=== PATIENT | male | born 1975 | race Caucasian/White ===

== ENCOUNTER 2018-05-20 11:48 | Emergency (ER) | payer OTHER, SELFPAY ==
[2018-05-20 11:48] VITALS: BP 172/111; PULSE 59; RESP 20; TEMP 36.4; O2SAT 99; BMI 25.0
--- NOTE | 2018-05-20 13:03 | ED.WOUNDLAC ---
HPI - Wound/Laceration <Shanice Aopnte PA-C - Last Filed: 05/20/18 17:54> General Chief Complaint: Extremity Injury, Upper Stated Complaint: Cut on Rt thumb Time Seen by Provider: 05/20/18 13:02 Source: patient Mode of arrival: ambulatory Limitations: no limitations History of Present Illness HPI narrative: This 43-year-old male was doing dishes and cut himself on a straight kitchen knife shortly prior to arrival. He states it was bleeding fairly profusely initially. He bandaged it and that has stopped. He denies any numbness or weakness in the thumb, no difficulty with moving. He denies any other injury. He just had a tetanus vaccine in the last 2 or 3 weeks. Related Data Allergies Allergy/AdvReac Type Severity Reaction Status Date / Time No Known Drug Allergies Allergy Verified 05/20/18 12:10 Review of Systems <Shanice Aponte PA-C - Last Filed: 05/20/18 17:54> Review of Systems All systems reviewed & are unremarkable except as noted in HPI and below Exam <Shanice Aponte PA-C - Last Filed: 05/20/18 17:54> Narrative Exam Narrative: GENERAL APPEARANCE: Patient sitting comfortably, in no distress. LUNGS: Clear to auscultation bilaterally. HEART: Rate and rhythm regular without murmur, normal S1 and S2, no S3 or S4. DERMATOLOGIC: Right thumb between the the MCP and IP on the dorsal surface there is a 5 mm slightly curved lack with less than 2 mm gap with tension on the skin, no gap in neutral position. Not actively bleeding. Depth is less than 1mm MUSCULOSKELETAL: Full range of motion of the right thumb with strength intact NEUROVASCULAR: Right thumb is warm and pink with brisk cap refill, sensation grossly intact Initial Vital Signs Initial Vital Signs: Vital Signs Temperature 97.5 F L 05/20/18 11:48 Pulse Rate 59 L 05/20/18 11:48 Respiratory Rate 20 05/20/18 11:48 Blood Pressure 172/111 H 05/20/18 11:48 Pulse Oximetry 99 05/20/18 11:48 <Araceli Hightower MD - Last Filed: 05/21/18 08:02> Initial Vital Signs Initial Vital Signs: Vital Signs Temperature 97.5 F L 05/20/18 11:48 Pulse Rate 59 L 05/20/18 11:48 Respiratory Rate 20 05/20/18 11:48 Blood Pressure 172/111 H 05/20/18 11:48 Pulse Oximetry 99 05/20/18 11:48 Procedures <Shanice Aponte PA-C - Last Filed: 05/20/18 17:54> Laceration Repair Laceration 1: Site: hand Side (If applicable): right Size (cm): 5 Description: linear Depth: simple, single layer Pre-repair: irrigated extensively Skin layer closed with: other (dermabond. No FB visible) Course <Shanice Aponte PA-C - Last Filed: 05/20/18 17:54> Vital Signs - 8 hr 05/20/18 11:48 Temperature 97.5 F L Pulse Rate 59 L Respiratory Rate 20 Blood Pressure 172/111 H Pulse Oximetry 99 <Araceli Hightower MD - Last Filed: 05/21/18 08:02> Vital Signs - 8 hr 05/20/18 11:48 Temperature 97.5 F L Pulse Rate 59 L Respiratory Rate 20 Blood Pressure 172/111 H Pulse Oximetry 99 Discharge Plan Departure Patient Disposition: Home Clinical Impression: Laceration of thumb Discharge Date/Time: 05/20/18 13:32 Interventions: ED Discharge Assessment Last Done: 05/20/18 13:32 Instructions: DI for Laceration Repair With Dermabond Activity Restrictions/Additional Instructions: Please keep your thumb in the splint/straight for protection and to help it heal for at least a few days. Keep the wound clean and dry (the Steri-Strips will fall off by themselves), and watch for any sign of infection such as redness, swelling, draining pus, increased pain or fever. Return right away or see your PCP if any. [facility] [Outside]
== END 2018-05-20 13:32 | disposition home or self-care (01) ==
PROVIDERS: Emergency Provider Internal Medicine
DX: S61.011A Laceration without foreign body of right thumb without damage to nail, initial encounter (principal); W26.0XXA Contact with knife, initial encounter
CPT/HCPCS: 29130; 99282; 99283

== ENCOUNTER → 2018-10-03 08:08 | Outpatient (CLI) | payer OTHER, SELFPAY ==
[2018-10-03 08:38] LABS: Add Manual Diff / Slide Review NO; Basophils Absolute Auto 0 /uL (0-100); Basophils Percent Auto 0.4 % (0-2); Eosinophils Absolute Auto 200 /uL (0-450); Eosinophils Percent Auto 2.9 % (2-4); Hematocrit 46.4 % (41-53); Hemoglobin 15.8 g/dL (13.5-17.5); Lymphocytes Absolute Auto 1500 /uL (1100-4500); Lymphocytes Percent Auto 20.7 % (25-40); Mean Corpuscular Volume 88.2 fL (80-100); Monocytes Absolute Auto 400 /uL (0-900); Neutrophils Absolute Auto 5100 /uL (1500-7000); Platelet Count 268 X10^3/uL (150-400); Red Blood Cell Count 5.26 X10^6/uL (4.5-5.9); White Blood Cell Count 7.3 X10^3/uL (4.5-11.0)
[2018-10-03 09:14] LABS: Alanine Aminotransferase 32 IU/L (21-72); Albumin 4.5 g/dL (3.5-5.0); Albumin Globulin Ratio 1.7 (1.0-2.8); Alkaline Phosphatase 44 U/L (38-126); Aspartate Aminotransferase 24 IU/L (17-59); Bilirubin Total 0.5 mg/dL (0.2-1.3); Blood Urea Nitrogen 14 mg/dL (9-20); Calcium 9.8 mg/dL (8.4-10.2); Carbon Dioxide 29 mmol/L (22-32); Chloride 101 mmol/L (98-107); Cholesterol 219 mg/dL (140-199); Estimated Glomerular Filt Rate > 60.0 mL/min (>60); Globulin 2.6 g/dL (1.7-4.1); Glucose 95 mg/dL (70-100); HDL Cholesterol 55 mg/dL (40-60); HEMOLYSIS < 15 (0-50); LDL Cholesterol Calculated 147 mg/dL (<100); Potassium 4.6 mmol/L (3.4-5.1); Sodium 139 mmol/L (137-145); Total Protein 7.1 g/dL (6.3-8.2); Triglycerides 86 mg/dL (35-150)
== END ==
PROVIDERS: PCP Internal Medicine; Visit Provider Internal Medicine
DX: Z00.00 Encounter for general adult medical examination without abnormal findings (principal); Z13.1 Encounter for screening for diabetes mellitus; Z13.6 Encounter for screening for cardiovascular disorders
CPT/HCPCS: 36415; 80053; 80061; 85025

== ENCOUNTER → 2020-10-08 07:32 | Outpatient (CLI) | payer OTHER, SELFPAY ==
[2020-10-08] MEDS: COVID-19 VACC, Ad26(JANSSEN)/PF 0.5 ML IM (07:39)
== END ==
PROVIDERS: PCP Internal Medicine; Visit Provider Internal Medicine
DX: Z23 Encounter for immunization (principal)
CPT/HCPCS: 0031A; 91303

== ENCOUNTER 2020-11-26 15:40 | Emergency (ER) | payer OTHER, SELFPAY ==
[2020-11-26 15:48] VITALS: BP 167/99; PULSE 63; RESP 14; TEMP 36.1; O2SAT 100; BMI 24.4
--- NOTE | 2020-11-26 15:56 | DI.RAD.S_ITS ---
PROCEDURE: XR FINGER LT MIN 2V INDICATIONS: caught finger in belt at work TECHNIQUE: AP hand, 2 views of the 5th finger(s) acquired. COMPARISON: None. FINDINGS: Bones: No fractures or dislocations. No suspicious bony lesions. Soft tissues: No suspicious soft tissue calcifications. IMPRESSION: No visualized acute fracture or dislocation. However, if clinical concern and/or pain persist, short interval imaging followup in 7-10 days is recommended, as occult injury cannot be definitively excluded. Dictated by: Kelsey Burris M.D. on 11/26/2020 at 16:26 Approved by: Kelsey Burris M.D. on 11/26/2020 at 16:26
--- NOTE | 2020-11-26 18:05 | ED_ITS ---
HPI - Extremity Injury (Upper) General Chief Complaint: Extremity Injury, Upper Stated Complaint: Smashed Left Pinky Time Seen by Provider: 11/26/20 18:04 Source: patient Mode of arrival: Ambulatory Limitations: no limitations History of Present Illness HPI narrative: 45-year-old male nonsmoker with noncontributory medical history presents with a chief complaint of an accidental injury to his left 5th finger. Patient injured himself while at work and his finger was briefly caught in a belt and he suffered an abrasion and injury to the tip of his finger. He has full range of motion though it is painful. His last tetanus was only a few years ago. He is otherwise well and free of complaint MD complaint: injury to: left Onset (ago): hour(s) Other Extremity Injury: Left: fingers Other injuries: none Handedness: right Place: work Severity: mild Relieving factors: none Exacerbating factors: movement of extremity Context: direct blow Associated symptoms: denies other symptoms Treatments prior to arrival: bandage Related Data Home Medications Medication Instructions Recorded Confirmed No Known Home Medications 10/01/18 07/18/19 Allergies Allergy/AdvReac Type Severity Reaction Status Date / Time No Known Drug Allergies Allergy Verified 11/26/20 15:50 Review of Systems Constitutional Constitutional: Denies chills, Denies fatigue, Denies fever(s), Denies frequent falls, Denies lethargy and Denies weakness Eyes Eyes: Denies change in vision, Denies eye discharge, Denies irritation and Denies loss of vision ENT Ears, Nose, Mouth, and Throat: Denies change in voice, Denies dizziness, Denies neck pain, Denies sore throat and Denies throat swelling Cardiovascular Cardiovascular: Denies chest pain, Denies irregular heart rhythm, Denies lightheadedness, Denies palpitations, Denies dyspnea, Denies dyspnea on exertion and Denies orthopnea Respiratory Respiratory: Denies cough, Denies dyspnea, Denies dyspnea on exertion and Denies wheezing Gastrointestinal Gastrointestinal: Denies abdominal pain, Denies change in bowel habits, Denies diarrhea, Denies nausea and Denies vomiting Musculoskeletal Musculoskeletal: Reports arthralgias, Denies neck pain and Denies numbness Integumentary/Breasts Skin/Breast: Denies pruritus, Denies erythema, Denies rash and Denies wounds Neurologic Neurologic: Denies behavioral changes, Denies confusion, Denies dizziness, Denies frequent falls, Denies loss of vision, Denies numbness and Denies w eakness Psychiatric Psychiatric: Denies anxiety, Denies behavioral changes, Denies confusion, Denies depression, Denies homicidal ideation and Denies suicidal ideation Endocrine Endocrine: Denies fatigue, Denies flushing and Denies palpitations Hematologic/Lymphatic Hematologic/Lymphatic: Denies easy bruising Allergic/Immunologic Allergic/Immunologic: Denies urticaria, Denies throat swelling and Denies wheezing Patient History Medical History Chicken pox (~1975) Chronic back pain (~2005) Fractures (~1987) Shoulder pain (~2005) Tinnitus (~2017) Surgical History Hx of LASIK (~12/2013) Family History Grandmother Diabetes mellitus Hypertension History of heart disease Grandfather History of heart disease Grandfather Stroke Social History Smoking Status: Former smoker Smoking Status: Former smoker alcohol intake frequency: 0-2 drinks per day Substance Use Type: does not use Exam Narrative Exam Narrative: GEN: AOx3 and in mild distress EYES: Pupils are equal, round, and reactive to light and accommodation. Extraoccular muscles are intact bilaterally. There is no subconjunctival hemorrhage or exudate. CHEST: Lungs are clear to auscultation bilaterally and free of wheezes, rales, or rhonchi. Heart rate is regular rhythm, there are no murmurs, clicks, rubs, or gallops. There is no chest wall tenderness. ABD: Abdomen is soft and nontender. There is no guarding or rebound. Bowel sounds are normal in all 4 quadrants. There is no mass or organomegaly. EXT: Full painless ROM of all extremities with no loss of sensation or strength. Superficial abrasion to the tip of left 5th finger, no subungual hematoma, no injury to the nail or nail fold. SKIN: Warm, pink, and dry. No erythema or rash Initial Vital Signs Initial Vital Signs: Vital Signs Temperature 96.9 F L 11/26/20 15:48 Pulse Rate 63 11/26/20 15:48 Respiratory Rate 14 11/26/20 15:48 Blood Pressure 167/99 H 11/26/20 15:48 Pulse Oximetry 100 11/26/20 15:48 Course Orders Ordered: ED Orders 11/26/20 15:56 XR finger LT min 2V Stat Vital Signs Vital signs: Vital Signs - 8 hr 11/26/20 15:48 Temperature 96.9 F L Pulse Rate 63 Respiratory Rate 14 Blood Pressure 167/99 H Pulse Oximetry 100 MDM - Extremity Injury (Upper) Imaging Data Extremity x-ray #1: Radiologist's Impression: [address] [id number] ReportSigned Patient: Alpesh Marion PMR#: [id number]: 1975Acct:[id number]/Sex: 45 / MDate of Service: 11/26/20Loc: EDAccession Number: [id number] Procedure: XR finger LT min 2V Ordering Provider: Mango Garcia D.O. PROCEDURE: XR FINGER LT MIN 2V INDICATIONS: caught finger in belt at work TECHNIQUE: AP hand, 2 views of the 5th finger(s) acquired. COMPARISON: None. FINDINGS: Bones: No fractures or dislocations. No suspicious bony lesions. Soft tissues: No suspicious soft tissue calcifications. IMPRESSION: No visualized acute fracture or dislocation. However, if clinical concern and/or pain persist, short interval imaging followup in 7-10 days is recommended, as occult injury cannot be definitively excluded. Dictated by: Kelsey Burris M.D. on 11/26/2020 at 16:26 Approved by: Kelsey Burris M.D. on 11/26/2020 at 16:26 Discharge Plan Departure Patient Disposition: Home Clinical Impression: Crush injury to finger Qualifiers: Encounter type: initial encounter Qualified Code(s): S67.10XA - Crushing injury of unspecified finger(s), initial encounter Instructions: DI for Crush Injury Activity Restrictions/Additional Instructions: *You have been diagnosed with [crush injury to left 5th finger without evidence of fracture or laceration requiring repair] *What to do: *Please continue to take your regular medications as directed. [ ] New medication prescriptions sent to your pharmacy: [ ] [ ] New medication written as a paper prescription [x ] No new medications given *Please follow up with your primary care provider in 2-3 days, call for an appointment. Let them know you were seen in the Emergency Department and that we ask that you be seen in follow up. We will electronically transmit a record of today's note if your PCP is in our system *If you do not have a primary care provider please contact the [facility] Resource line at [phone]. They will ask some questions about your medical history and help get you set up with a doctor in the community. *Return to Emergency Department if you should have any new, worsening or concerning symptoms, such as [fever greater than 101 F, shaking chills, worsening pain, persistent vomiting or other bothersome symptoms] Prescriptions: No Action No Known Home Medications RF: 0 Referrals: Jhonathan Mays MD [Primary Care Provider] -
--- NOTE | 2020-11-26 18:35 | PC.NURSE ---
removed bandage, replaced with bandage.
[2020-11-26 18:37] VITALS: BP 140/92; PULSE 66; RESP 18; O2SAT 100
== END 2020-11-26 18:37 | disposition home or self-care (01) ==
PROVIDERS: Emergency Provider Emergency Medicine; PCP Internal Medicine
DX: S67.10XA Crushing injury of unspecified finger(s), initial encounter (principal); W23.0XXA Caught, crushed, jammed, or pinched between moving objects, initial encounter; Y99.0 Civilian activity done for income or pay
CPT/HCPCS: 73140; 99283

== ENCOUNTER → 2021-02-10 07:04 | Outpatient (CLI) | payer OTHER, SELFPAY ==
[2021-02-10 08:12] LABS: Add Manual Diff / Slide Review NO; Basophils Absolute Auto 0 /uL (0-100); Basophils Percent Auto 0.6 % (0-2); Eosinophils Absolute Auto 300 /uL (0-450); Eosinophils Percent Auto 6.6 % (2-4); Hemoglobin 14.8 g/dL (13.5-17.5); Lymphocytes Absolute Auto 1400 /uL (1100-4500); Lymphocytes Percent Auto 30.8 % (25-40); Mean Corpuscular HGB Conc 33.6 % (30-36); Mean Corpuscular Hemoglobin 30.1 PG (26-34); Mean Corpuscular Volume 89.4 fL (80-100); Monocytes Absolute Auto 300 /uL (0-900); Monocytes Percent Auto 7.4 % (3-14); Neutrophils Absolute Auto 2500 /uL (1500-7000); Neutrophils Percent Auto 54.6 % (50-75); Platelet Count 230 X10^3/uL (150-400); Red Blood Cell Count 4.92 X10^6/uL (4.5-5.9); Red Cell Distribution Width 12.9 % (11.6-14.8); White Blood Cell Count 4.6 X10^3/uL (4.5-11.0)
[2021-02-10 08:28] LABS: Alanine Aminotransferase 31 IU/L (<50); Albumin 4.2 g/dL (3.5-5.0); Albumin Globulin Ratio 1.4 (1.0-2.8); Alkaline Phosphatase 39 U/L (38-126); Aspartate Aminotransferase 30 IU/L (17-59); BUN Creatinine Ratio 13.3 (6-22); Bilirubin Total 0.5 mg/dL (0.2-1.3); Blood Urea Nitrogen 13 mg/dL (9-20); Calcium 9.3 mg/dL (8.4-10.2); Carbon Dioxide 25 mmol/L (22-32); Chloride 105 mmol/L (98-107); Cholesterol 208 mg/dL (140-199); Estimated Glomerular Filt Rate > 60.0 mL/min (>60); Globulin 2.9 g/dL (1.7-4.1); Glucose 103 mg/dL (70-100); HDL Cholesterol 46 mg/dL (40-60); HEMOLYSIS < 15 (0-50); LDL Cholesterol Calculated 141 mg/dL (<100); Potassium 4.3 mmol/L (3.4-5.1); Sodium 137 mmol/L (137-145); Total Protein 7.1 g/dL (6.3-8.2); Triglycerides 103 mg/dL (35-150)
[2021-02-10 08:55] LABS: Prostate Specific Antigen Scrn 0.479 ng/mL (0.1-4.0)
== END ==
PROVIDERS: PCP Naturopath; Referring Provider Naturopath; Visit Provider Naturopath
DX: Z00.00 Encounter for general adult medical examination without abnormal findings (principal)
CPT/HCPCS: 36415; 80053; 80061; 85025; G0103

== ENCOUNTER 2022-03-02 21:10 | Emergency (ER) | payer OTHER, SELFPAY ==
[2022-03-02 21:22] VITALS: BP 137/91; PULSE 77; RESP 16; TEMP 36.9; O2SAT 100
--- NOTE | 2022-03-02 21:25 | ED.EYEPROB ---
HPI - Eye Problem General Chief complaint: Eye Problems Stated complaint: irritation in rt eye Time Seen by Provider: 03/02/22 21:14 Source: patient Mode of arrival: Ambulatory History of Present Illness HPI Narrative: 47M nonsmoker with noncontributory medical history presents with a chief complaint of irritation in his right eye over the course of the day. He states that he was working on some job sites that were quite julian and there was wind blowing around any feels like something is in his eye though he does not heavy obvious memorable moment in which something blew into his eye. He does not wear contacts and states that his tetanus will need to be updated. Related Data Home Medications Medication Instructions Recorded Confirmed No Known Home Medications 10/01/18 07/18/19 Allergies Allergy/AdvReac Type Severity Reaction Status Date / Time No Known Drug Allergies Allergy Verified 11/26/20 15:50 Review of Systems Review of Systems Narrative: GENERAL: Denies chills, fatigue, malaise, fever, sweats. HEENT: See HPI RESPIRATORY: Denies dyspnea, cough, wheezing, hemoptysis, sputum. CARDIOVASCULAR: Denies chest pain, palpitations, orthopnea, edema, GASTROINTESTINAL: Denies nausea, vomiting, abdominal pain, diarrhea, constipation, melena. : Denies dysuria, frequency, incontinence, hematuria, urinary retention. MUSCULOSKELETAL: denies weakness, joint pain, or bony pain SKIN: Denies rash, skin lesions, or other NEUROLOGIC: Denies weakness, headache, numbness, change in speech, confusion, seizures, incoordination. PSYCHIATRIC: No concerning psychosocial issues. 12 point review of systems is negative except for those stated above Patient History Medical History Chicken pox (~1975) Chronic back pain (~2005) Fractures (~1987) Shoulder pain (~2005) Tinnitus (~2017) Surgical History Hx of LASIK (~12/2013) Family History Grandmother Diabetes mellitus Hypertension History of heart disease Grandfather History of heart disease Grandfather Stroke Social History Smoking Status: Former smoker Smoking Status: Former smoker alcohol intake frequency: 0-2 drinks per day Substance Use Type: does not use Exam Narrative Exam Narrative: GEN: AOx3 and in mild distress EYES: Pupils are equal, round, and reactive to light and accommodation. Extraoccular muscles are intact bilaterally. Moderate scleral injection in right eye, viewed under Wood's lamp and no obvious foreign body, upper lid everted. There is fluorescein uptake at the 6 o'clock position in small linear lesions. No ulceration noted. Patient had complete resolution of symptoms with proparacaine. CHEST: Lungs are clear to auscultation bilaterally and free of wheezes, rales, or rhonchi. Heart rate is regular rhythm, there are no murmurs, clicks, rubs, or gallops. There is no chest wall tenderness. ABD: Abdomen is soft and nontender. There is no guarding or rebound. Bowel sounds are normal in all 4 quadrants. There is no mass or organomegaly. EXT: Full painless ROM of all extremities with no loss of sensation or strength. SKIN: Warm, pink, and dry. No erythema or rash Initial Vital Signs Initial Vital Signs: Vital Signs Temperature 98.5 F 03/02/22 21:22 Pulse Rate 77 03/02/22 21:22 Respiratory Rate 16 03/02/22 21:22 Blood Pressure 137/91 H 03/02/22 21:22 Pulse Oximetry 100 03/02/22 21:22 Oxygen Delivery Method 03/02/22 21:22 Course Orders Ordered: Discontinued Medications Diphtheria/Tetanus/Acell Pertussis (Tet,Diph,Pertuss(Acell),Vac/Pf 0.5 Ml Syringe) 0.5 ml IM .ONCE ONE Stop: 03/02/22 21:37 Fluorescein Sodium (Fluorescein 1 Mg Strip) 1 mg EYE-RIGHT NOW ONE Stop: 03/02/22 21:15 Ofloxacin (Ofloxacin 0.3% Ophth 5 Ml) 1 drops EYE-RIGHT NOW ONE Stop: 03/02/22 21:37 Proparacaine HCl (Proparacaine 0.5% Ophth Sandra) 1 drops EYE-RIGHT NOW ONE Stop: 03/02/22 21:15 Vital Signs Vital signs: Vital Signs - 8 hr 03/02/22 21:22 Temperature 98.5 F Pulse Rate 77 Respiratory Rate 16 Blood Pressure 137/91 H Pulse Oximetry 100 Oxygen Delivery Method Room Air Discharge Plan Departure Patient Disposition: Home Clinical Impression: Corneal abrasion Instructions: DI for Corneal Abrasion Activity Restrictions/Additional Instructions: *You have been diagnosed with [right eye corneal abrasion] *What to do: *Please continue to take your regular medications as directed. [ x] Proparacaine drops diluted to 0.05%: 1-2 drops in your right eye every 30-60 minutes as needed for pain [x ] ofloxacin drops. 1-2 drops in right eye every 4 hours while awake until symptoms improve *Please follow-up with Dr. Harrison or Freddy at our [facility] if your symptoms persist more than a few days. The contact info is listed below, please call the office and let them know that you were seen in the emergency department and we would like you seen in follow-up *Return to Emergency Department if you should have any new, worsening or concerning symptoms, such as [fever greater than 101 F, shaking chills, worsening pain, persistent vomiting or other bothersome symptoms] Prescriptions: No Action No Known Home Medications Referrals: Warren Hayes MD [Physician] - Jessi Alvarado ND [Primary Care Provider] -
[2022-03-02] MEDS: PROPARACAINE 0.5% OPHTH SOL 1 DROPS EYE-RIGHT (22:08)
[2022-03-02] MEDS: FLUORESCEIN 1 MG STRIP EYE-RIGHT (22:08)
[2022-03-02] MEDS: OFLOXACIN 0.3% OPHTH 5 ML 1 DROPS EYE-RIGHT (22:08)
[2022-03-02] MEDS: TET,DIPH,PERTUSS(ACELL),VAC/PF 0.5 ML SYRINGE IM (22:10)
[2022-03-02 22:19] VITALS: BP 130/90; PULSE 75; RESP 16; O2SAT 100
== END 2022-03-02 22:20 | disposition home or self-care (01) ==
PROVIDERS: Emergency Provider Emergency Medicine; PCP Naturopath
DX: S05.01XA Injury of conjunctiva and corneal abrasion without foreign body, right eye, initial encounter (principal); Z23 Encounter for immunization
CPT/HCPCS: 90471; 99283; 90715

== ENCOUNTER → 2023-01-23 08:19 | Outpatient (CLI) | payer OTHER, SELFPAY ==
[2023-01-23 10:35] LABS: Add Manual Diff / Slide Review NO; Basophils Absolute Auto 0 /uL (0-100); Basophils Percent Auto 0.4 % (0-2); Eosinophils Absolute Auto 400 /uL (0-450); Eosinophils Percent Auto 3.4 % (2-4); Hematocrit 43.5 % (41-53); Hemoglobin 14.9 g/dL (13.5-17.5); Lymphocytes Absolute Auto 1500 /uL (1100-4500); Mean Corpuscular HGB Conc 34.2 % (30-36); Mean Corpuscular Hemoglobin 31.1 PG (26-34); Mean Corpuscular Volume 90.7 fL (80-100); Monocytes Absolute Auto 600 /uL (0-900); Monocytes Percent Auto 5.3 % (3-14); Neutrophils Absolute Auto 9600 /uL (1500-7000); Neutrophils Percent Auto 78.9 % (50-75); Platelet Count 279 X10^3/uL (150-400); Red Cell Distribution Width 13.1 % (11.6-14.8); White Blood Cell Count 12.1 X10^3/uL (4.5-11.0)
[2023-01-23 10:45] LABS: Alanine Aminotransferase 26 IU/L (<50); Albumin 4.2 g/dL (3.5-5.0); Albumin Globulin Ratio 1.5 (1.0-2.8); Alkaline Phosphatase 62 U/L (38-126); Aspartate Aminotransferase 28 IU/L (17-59); BUN Creatinine Ratio 9.9 (6-22); Bilirubin Total 0.5 mg/dL (0.2-1.3); Blood Urea Nitrogen 9 mg/dL (9-20); Calcium 9.3 mg/dL (8.4-10.2); Carbon Dioxide 26 mmol/L (22-32); Chloride 100 mmol/L (98-107); Cholesterol 169 mg/dL (140-199); Estimated Glomerular Filt Rate > 60 mL/min (>60); Globulin 2.8 g/dL (1.7-4.1); Glucose 86 mg/dL (70-100); HDL Cholesterol 52 mg/dL (40-60); HEMOLYSIS < 15 (0-50); LDL Cholesterol Calculated 95 mg/dL (<100); Potassium 4.5 mmol/L (3.4-5.1); Sodium 132 mmol/L (137-145); Triglycerides 112 mg/dL (35-150)
== END ==
PROVIDERS: PCP Naturopath; Referring Provider Naturopath; Visit Provider Naturopath
DX: Z00.00 Encounter for general adult medical examination without abnormal findings (principal); I10 Essential (primary) hypertension; Z12.11 Encounter for screening for malignant neoplasm of colon
CPT/HCPCS: 36415; 80053; 80061; 85025

== ENCOUNTER → 2023-01-24 07:32 | Outpatient (CLI) | payer OTHER, SELFPAY ==
[2023-01-26 10:36] LABS: Fecal Immunochemical Test Negative (Negative)
== END ==
PROVIDERS: PCP Naturopath; Referring Provider Naturopath; Visit Provider Naturopath
DX: Z00.00 Encounter for general adult medical examination without abnormal findings (principal); I10 Essential (primary) hypertension; Z12.11 Encounter for screening for malignant neoplasm of colon
CPT/HCPCS: 82274